=== PATIENT | male | born 1975 | race Caucasian/White ===

== ENCOUNTER → 2017-08-19 08:09 | Outpatient (CLI) | payer OTHER, SELFPAY | PROVIDERS: PCP Family Medicine; Visit Provider Family Medicine | DX: R06.02 Shortness of breath (principal); R53.83 Other fatigue | CPT/HCPCS: 93017 ==

== ENCOUNTER → 2019-10-20 08:24 | Outpatient (CLI) | payer OTHER, SELFPAY ==
--- NOTE | 2019-10-20 08:27 | CA_ITS ---
APPROVED REPORT Right Lower Extremity Venous Study for Acute Care Surgeon: CT Indications Lower Extremity Pain: Right Lower Extremity Edema: Right Vein Imaging CFV (R): compressive, spontaneous, phasic, augmentation SFJ (R): compressive, spontaneous, phasic, augmentation FEM (R): compressive, spontaneous, phasic, augmentation POP (R): compressive, spontaneous, phasic, augmentation DFV (R): compressive, spontaneous, phasic, augmentation PTV (R): compressive, spontaneous, phasic, augmentation GSV (R): compressive, spontaneous, phasic, augmentation SSV (R): compressive, spontaneous, phasic, augmentation Peroneals (R):compressive, spontaneous, phasic, augmentation GAS (R): compressive, spontaneous, phasic, augmentation Findings RLE negative for DVT/SVT Vessels fully compressible. no reflux noted. Conclusion No evidence of DVT or superficial thrombophlebitis in the veins scanned of the right lower extremity. Electronically signed by : Bg De La O MD 10/23/2019 16:53:01
== END ==
PROVIDERS: PCP Nurse Practitioner; Visit Provider Nurse Practitioner
DX: L03.115 Cellulitis of right lower limb (principal)
CPT/HCPCS: 93971

== ENCOUNTER → 2022-12-10 23:40 | Outpatient (CLI) | payer OTHER, SELFPAY ==
[2022-12-10 18:44] LABS: Basophils % 0.4 % (0.1-2.0); Eosinophils # 0.1 K/mm3 (0.0-0.4); Eosinophils % 1.3 % (0.1-12.0); Hematocrit 47.4 % (42.0-52.0); Hemoglobin 15.7 g/dL (14.1-18.0); Lymphocytes # 1.4 K/mm3 (0.7-4.5); Lymphocytes % 26.2 % (10-50); Mean Corpuscular HGB Conc 33.1 g/dL (31.8-35.4); Mean Corpuscular Hemoglobin 28.1 pg (27.0-31.2); Mean Corpuscular Volume 84.8 fl (80-94); Mean Platelet Volume 8.7 fl (7.4-10.4); Monocytes # 0.4 K/mm3 (0.1-1.0); Monocytes % 7.5 % (1.7-9.3); Neutrophils # 3.5 K/mm3 (1.8-7.8); Neutrophils % 64.5 % (37.0-80.0); Platelet Count 249 K/mm3 (142-424); Red Blood Count 5.59 M/mm3 (4.60-6.20); White Blood Count 5.4 K/mm3 (4.8-10.8)
[2022-12-10 19:19] LABS: Alanine Aminotransferase 55 U/L (12-78); Albumin Level 4.5 g/dl (3.5-5.0); Albumin/Globulin Ratio 1.5 (1.1-1.8); Alkaline Phosphatase 104 U/L (38-126); Anion Gap 12.8 mEq/L (5-15); Aspartate Amino Transferase 39 U/L (17-59); Bilirubin,Total 0.6 mg/dl (0.2-1.3); Blood Urea Nitrogen 14 mg/dl (9-20); Calcium 9.1 mg/dl (8.4-10.2); Carbon Dioxide 27 mmol/L (22.0-30.0); Chloride 106 mmol/L (98-107); Chol/HDL Ratio 9.9 (1-3.5); Cholesterol 317 mg/dl (140-200); Estimated Glomerular Filt Rate 80 ml/min (>60); GFR (African American) 97 ML/MIN (>60); Globulin 3.1 g/dL (1.3-3.2); Glucose 87 mg/dl (74-100); HDL Cholesterol 32 mg/dl (40-60); Potassium 3.8 mmoL/L (3.5-5.1); Sodium 142 mmol/L (136-145); Total Protein,Serum 7.6 g/dl (6.3-8.2)
[2022-12-10 19:31] LABS: Direct LDL Cholesterol 171.94 mg/dL (100-129)
[2022-12-10 19:37] LABS: Microalbumin/Creatinine Ratio 4.9
[2022-12-10 19:51] LABS: Prostate Specific Ag Screen 0.6 ng/ml (0.0-4.0); Thyroid Stimulating Hormone 1.63 uIU/mL (0.465-4.68)
[2022-12-10 19:57] LABS: Triglycerides 458 mg/dl (30-150)
[2022-12-10 19:58] LABS: Creatinine,Urine Random 240 mg/dL (Not Estab.)
[2022-12-10 20:28] LABS: Hemoglobin A1C 5.8 % (4.0-6.0)
== END ==
PROVIDERS: PCP Nurse Practitioner; Visit Provider Nurse Practitioner
DX: I10 Essential (primary) hypertension (principal); E78.5 Hyperlipidemia, unspecified; Z79.899 Other long term (current) drug therapy; Z12.5 Encounter for screening for malignant neoplasm of prostate
CPT/HCPCS: 80053; 80061; 82043; 82570; 83036; 84443; 85025; G0103

== ENCOUNTER 2024-04-28 10:31 | Day surgery (SDC) | payer OTHER, SELFPAY ==
[2024-04-28 10:31] VITALS: BMI 40.4
[2024-04-28] MEDS: EPINEPHrine 0.1 MG/ML 10ML SYRINGE (CRASH CART) 1 MG IV ×5 (10:31→10:47)
[2024-04-28] MEDS: LIDOCAINE 2% 100 MG/5ML SYRINGE (CRASH CART) IV (10:36)
[2024-04-28] MEDS: 0.9 % SODIUM CHLORIDE 1000ML 1,000 ML 999 ML IV (10:36)
[2024-04-28] MEDS: AMIODARONE HCL 150MG/3ML VIAL 150 MG IVP (10:36)
--- NOTE | 2024-04-28 10:45 | IR_ITS ---
APPROVED REPORT Patient Location: Emergent PROCEDURES Selective coronary angiogram Attempted angioplasty of the right coronary artery Right femoral venous sheath Cardiopulmonary resuscitation for 30 minutes INDICATION Cardiogenic shock with full cardiac arrest, Coronary artery disease, Informed consent was obtained prior to the procedure. COMPLICATIONS NONE Estimated Blood Loss: LESS THAN 10 ML TECHNIQUE Patient was brought to the [facility] in full cardiac arrest undergoing chest compressions with auto pulse. The groin was sterilely prepped and a 6 Persian sheath was placed in the femoral artery and vein respectively. A JL 4 guide catheter was used to perform left coronary angiography. The left coronary arteries were patent with slow flow throughout the vessels consistent with low cardiac output and cardiogenic shock. The 6 Persian JR4 guide catheter was then placed into the right coronary artery which showed a distal occlusion. A Choice PT extra-support wire was attempted to traverse this occlusion however the occlusion appeared to be chronic and would not easily pass. Patient had received over 10 mg of epinephrine 5 through peripheral IV and 5 mg through a central line. Despite CPR patient remained in asystole. Multiple shocks were delivered still without recovery from asystole. The patient was pronounced . ANGIOGRAPHIC RESULTS The left main artery Patent The left anterior descending artery Patent The circumflex artery Patent The right coronary artery Is a dominant vessel and occluded distal to the RV marginal branch. This appeared to be a chronic occlusion based on inability to easily pass a wire. The PERSAUD ventriculogram reveals Not performed The left ventricular end-diastolic pressure Not measured IMPRESSION Full cardiopulmonary arrest by the time patient arrived in the [facility] Attempts at resuscitation failed PLAN 1. Borematic Operator will be notified Electronically signed by : Ham Figueroa MD 04/28/2024 12:14:45
--- NOTE | 2024-04-28 10:49 | ED_ITS ---
Discharge Plan Disposition Patient Disposition: Admitted Prescriptions Prescriptions: No Action fluocinonide 0.1 % cream 1 applic topical BID Qty: 60 2RF coenzyme Q10 100 mg capsule See Rx Instructions .ROUTE .COMPLEX Qty: 90 0RF Dose Instruction: TAKE 1 CAPSULE ORALLY ONCE DAILY Rx Instructions: TAKE 1 CAPSULE ORALLY ONCE DAILY rosuvastatin 10 mg tablet See Rx Instructions .ROUTE .COMPLEX Qty: 90 0RF Dose Instruction: TAKE 1 TABLET ORALLY ONCE DAILY Rx Instructions: TAKE 1 TABLET ORALLY ONCE DAILY lisinopril 5 mg tablet See Rx Instructions .ROUTE .COMPLEX Qty: 90 0RF Dose Instruction: TAKE 1 TABLET ORALLY ONCE DAILY Rx Instructions: TAKE 1 TABLET ORALLY ONCE DAILY Clinical Impressions Clinical Impression: Cardiopulmonary arrest Print Language Print Language: [place] Discharge ED Provider: Karon Rivera General Adult HPI General Stated complaint: Code Blue Time Seen by Provider: 04/28/24 10:48 History of Present Illness HPI narrative: Patient is a 48-year-old male who was brought to the front door the hospital in cardiac arrest. Initial history was unable to be obtained and patient was in cardiac arrest and was placed on a stretcher and brought into the emergency department. Chest compressions were initially begun in the parking lot no further history able to be obtained secondary to patient's clinical status and the nature of the situation. Related Data Previous Rx's ?Medication ?Instructions ?Recorded fluocinonide 0.1 % topical cream 1 applic topical BID #60 grams 12/10/22 coenzyme Q10 100 mg capsule See Rx Instructions .Route 03/22/23 .COMPLEX #90 caps rosuvastatin 10 mg tablet See Rx Instructions .Route 03/22/23 .COMPLEX #90 tabs lisinopril 5 mg tablet See Rx Instructions .Route 03/29/23 .COMPLEX #90 tabs Allergies Allergy/AdvReac Type Severity Reaction Status Date / Time No Known Allergies Allergy Verified 12/10/22 13:40 [facility] Disclaimer: The information contained in this section may have been updated after the patient was seen, as this information can be updated by other users. Medical History (Updated 04/28/24 @ 10:50 by Kaorn Rivera MD) Colon cancer screening declined Hyperlipidemia Essential hypertension Family History (Updated 12/10/22 @ 13:41 by JOHNNIE Clark) Mother Hypertension Diabetes Father Hypertension Diabetes Social History (Updated 12/10/22 @ 13:40 by JOHNNIE Clark) Smoking Status: Never smoker alcohol intake: never current occupational status: employed Travel in the last 8 weeks: Inside the [place] ROS Obtained: Yes All systems reviewed & no additional complaints except as documented Physical Exam General General appearance: other (Cardiopulmonary arrest) Respiratory Respiratory exam: Present other (Agonal respirations initially but respiratory arrest after a few minutes of evaluation) Cardiovascular Cardiovascular exam: Present other (Pulseless) Neurological Exam Neurological exam: Present other (GCS of 3) Medical Decision Making Medical Records Screening: Per USPSTF and CDC recommendations, given the prevalence of disease in our region, it is our hospital?s policy to screen for HIV and viral Hepatitis for all patients aged 18 and over and those with ongoing risk factors. Angel Inquiry Pt receiving controlled substance: No Orders (Tests/Meds): ED MEDICATIONS Generic Name Dose Route Start Last Admin Trade Name Freq PRN Reason Stop Dose Admin Fentanyl Citrate 50 mcg 04/28/24 10:45 Fentanyl 100mcg/2ml Vial IV 04/28/24 22:45 Q3MINP PRN Sedation Fentanyl Citrate 25 mcg 04/28/24 10:45 Fentanyl 100mcg/2ml Vial IV 04/28/24 22:45 Q3MINP PRN Sedation Flumazenil 0.2 mg 04/28/24 10:45 Flumazenil 0.1mg/Ml 5ml Vial IV 04/28/24 22:45 NEEDED PRN Sedation Heparin Sodium (Porcine) 10,000 unit 04/28/24 10:45 Heparin 1,000 Units/Ml 10ml Vial (Spray Machine Loader) IV 04/28/24 14:45 NEEDED PRN Emergency Box Account Financial Manager Hydralazine HCl 20 mg 04/28/24 10:45 Hydralazine 20mg/Ml Vial IV 04/28/24 14:45 ONCE PRN sbp>160 Adenosine 180 mg/ Sodium 90 mls @ 0 mls/hr 04/28/24 10:45 Chloride IV 04/28/24 14:45 ONCE PRN fractional flow reserve 180 MCG/KG/MIN Adenosine 90 mg/ Sodium 90 mls @ 0 mls/hr 04/28/24 10:45 Chloride IV 04/28/24 14:45 ONCE PRN fractional flow reserve 180 MCG/KG/MIN Sodium Chloride 1,000 mls @ 25 mls/hr 04/28/24 10:45 Sod Chloride 0.9% 500ml Bag IV 04/29/24 10:45 .Q25H JAHAIRA Labetalol HCl 20 mg 04/28/24 10:45 Labetalol 20mg/4ml Syringe IV 04/28/24 14:45 ONCE PRN sbp>160 Midazolam HCl 1 mg 04/28/24 10:45 Midazolam 2mg/2ml Vial IV 04/28/24 22:45 Q3MINP PRN Sedation Midazolam HCl 1 mg 04/28/24 10:45 Midazolam Hcl 1mg/Ml 5ml Vial IV 04/28/24 22:45 Q3MINP PRN Sedation Naloxone HCl 0.4 mg 04/28/24 10:45 Naloxone 0.4mg/Ml Vial IV 04/28/24 22:45 Q5MINP PRN Decreased Respirations Nitroglycerin 800 mcg 04/28/24 10:45 Nitroglycerin 800mcg/8ml Syr (Spray Machine Loader) IA 04/28/24 14:45 NEEDED PRN Emergency Box Account Financial Manager Protamine Sulfate 50 mg 04/28/24 10:45 Protamine Sulfate 50mg/5ml Vial (Spray Machine Loader) IV 04/28/24 14:45 ONCE PRN act>200 Discontinued Medications Generic Name Dose Route Start Last Admin Trade Name Freq PRN Reason Stop Dose Admin Diphenhydramine HCl 50 mg 04/28/24 10:45 Diphenhydramine 50mg/Ml Vial IV 04/28/24 10:46 ONCE ONE Heparin Sodium/Sodium Chloride 3,000 unit 04/28/24 10:45 Heparin 1,000 Units/500ml Ns (Spray Machine Loader) IV 04/28/24 10:46 ONCE ONE Lidocaine HCl 20 ml 04/28/24 10:45 Lidocaine 1% 10ml Mdv IJ 04/28/24 10:46 ONCE ONE Lidocaine HCl 20 ml 04/28/24 10:45 Lidocaine 1% 5ml Pf Vial IJ 04/28/24 10:46 ONCE ONE Verapamil HCl 2.5 mg 04/28/24 10:45 Verapamil 2.5mg/Ml 2ml Vial IV 04/28/24 10:46 ONCE ONE ORDERS Category Date Time Status Basic Metabolic Panel Stat Lab 04/28/24 10:45 Ordered Complete Blood Count Auto Diff Stat Lab 04/28/24 10:45 Ordered Medical Decision Narrative: As stated above patient was found to be in cardiac arrest in the parking lot. Numerous staff members ran out to the parking lot began chest compressions and picked him up and put him on a stretcher. Patient was then brought into the emergency department room where he was started to be bagged by an Ambu bag he was suctioned and an oral airway was placed while he continued to be bagged w hile chest compressions were continuing. An IV was immediately placed in his left antecubital fossa and epinephrine was administered. Patient was placed on a ZOLL and found to be in a shockable rhythm/V-fib without any organized cardiac activity on bedside echo on multiple occasions he was shocked multiple times without any improvement. Lidocaine and amiodarone were administered in addition to multiple other doses of epinephrine. Someone was able to talk to the patient's who brought him to the emergency department and she stated that he had some chest discomfort just prior to arrival he has no medical problems he did take some aspirin prior to arrival. After 1520 minutes of ACLS I discussed with Dr. Figueroa about doing lytics versus take him to the Spr[facility]er he was placed on an auto pulse double sequential defibrillation was attempted without any success. Additionally patient was intubated prior to being transported to the [facility] for attempted heroic efforts. We did discuss with the patient's that prognosis is very poor patient remained in cardiac arrest and was transferred to the [facility] for attempted intervention. Procedures Intubation sedative: none Laryngoscope: Woodrow (4) Assist Device Used: Bougie ET Tube Size: 7.5 ET Tube Uncuffed: Yes Additional Comments: Patient was intubated during active chest compressions had a very difficult view I was able to pass the bougie around the epiglottis and ET tube was visualized going through the cords had positive color change was placed on end-tidal capnography Critical Care Critical Care Time Critical Care Time: Yes Attestation: On , the high probability of a clinically significant, sudden or life threatening deterioration of the following system(s) required my full and direct attention, intervention and personal management. The time I documented below is in addition to time spent performing reported procedures but includes the following listed in this critical care notation. Total Time Total Critical Care Time: 35
[2024-04-28 11:00] LABS: ABG Base Excess -22.6 mmol/L (-2.4-2.3); ABG Oxygen Saturation 96 % (90-100); ABG PCO2 30.4 mmhg (35.0-45.0); ABG PH 7.04 mmol/L (7.35-7.45); ABG PO2 110.9 mmhg (80-100)
[2024-04-28] MEDS: HEPARIN 1,000 UNITS/ML 10ML VIAL (CATH LAB) 10000 UNIT IV (11:14)
[2024-04-28] MEDS: SODIUM BICARB 8.4% 50ML SYRINGE (CRASH CART) 50 MEQ IV (11:17)
--- NOTE | 2024-04-28 11:18 | SUR.PHASEII ---
Patient on table, time of 1102. Patient transferred to ICU for post mortem care.
[2024-04-28] MEDS: EPINEPHrine 1MG/ML 30ML VIAL 15 MG IV (11:21)
--- NOTE | 2024-04-28 11:21 | SUR.PHASEII ---
family at bedside.
[2024-04-28] MEDS: 0.9 % SODIUM CHLORIDE 500 ML 25 ML IV (11:28)
[2024-04-28] MEDS: LIDOCAINE 1% 10ML MDV 20 ML IJ (11:29)
[2024-04-28] MEDS: HEPARIN 1,000 UNITS/500ML NS (CATH LAB) 3000 UNIT IV (11:29)
--- NOTE | 2024-04-28 11:41 | SUR.PREOP ---
Patient brought to cathlab from emergency room, cpr in progress with autopulse, et tube in place. Patient on ventilator at this time. ACLS protocol continued per laboratory technician staff.
--- NOTE | 2024-04-28 11:50 | SUR.PHASEII ---
Called and spoke with Earnest Garrett. Sandra states at this time she will call back after roof designer sees patient. .
--- NOTE | 2024-04-28 12:16 | PC.NURSE ---
Ruth Betancur, geographic information scientist at bedside.
--- NOTE | 2024-04-28 12:25 | PC.NURSE ---
Earenst Garrett called stating deferred case at this time d/t unknown cause. Ruth Betancur aware.
--- NOTE | 2024-04-28 12:52 | SUR.PHASEII ---
Pt's states to call home at this time. Ruth Betancur states she will notify home. [facility] home to come.
[2024-04-28] MEDS: IOPAMIDOL-370 (76%);100ML BOTTLE 20 ML IV (13:23)
--- NOTE | 2024-04-28 13:37 | SUR.PHASEII ---
[facility] home at bedside.
--- NOTE | 2024-04-28 17:21 | PC.NURSE ---
pt arrived to room 3 via stretcher with cpr in process by staff 1030 iv access established 18 G Left AC 1032 vfib noted on monitor, shocked-no pulse-cpr resumed 1033 vfib noted on monitor, shocked-no pulse-cpr resumed 1038 et tube placed 1039 18 G right AC 1040- vfib noted on monitor, shocked-no pulse-cpr resumed 1042- asystole on monitor, cpr resumed 1046- v-fib,double shock x2 zoll- no pulse-cpr resumed- at pt transferred by closing manager, cari, ER charge nurse to phlebotomist medical lab assistant
== END 2024-04-28 14:00 | disposition expired ==
LOC: ER 10:55 → CATHLAB 10:58 → ICU 11:59 → CATHLAB 15:22
PROVIDERS: Emergency Provider Student in an Organized Health Care Education/Training Program; Visit Provider Internal Medicine
DX: I46.9 Cardiac arrest, cause unspecified (principal); I10 Essential (primary) hypertension
CPT/HCPCS: 82803; 93454; 99291; C1725; C1769; J0171; J0282; J1644; J7030; Q9967